=== PATIENT | male | born 1945 | race African-American/Black ===

== ENCOUNTER → 2017-03-10 | Outpatient (CLI) | payer OTHER ==
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
== END | disposition home or self-care (01) ==
LOC: CNUC 09:10
DX: C61 Malignant neoplasm of prostate (principal)
CPT/HCPCS: 78306; A9503